=== PATIENT | male | born 1980 | race Caucasian/White ===

== ENCOUNTER → 2018-02-02 | Outpatient (REF) | payer OTHER | LOC: M SMT 13:07 | DX: Z30.09 Encounter for other general counseling and advice on contraception (principal) | CPT/HCPCS: 88302 ==

== ENCOUNTER → 2020-11-25 | Outpatient (CLI) | payer OTHER ==
--- NOTE | 2020-11-25 14:49 | REP ---
INDICATION: R22.1 SOFT TISSUE MASS OF ANTERIOR NECK. COMPARISON: None. TECHNIQUE: Real-time sonographic evaluation of neck soft tissues performed at the site of a palpable lump inferior to the thyroid anteriorly. FINDINGS: At the site of the palpable lump there is an oval area of soft tissue which is relatively isoechoic to subcutaneous fat. It measures 2.9 x 1.6 x 3.0 cm. This may represent a lipoma. No other cystic or solid masses seen. IMPRESSION: At the site of the palpable lump there is an area of soft tissue which appears isoechoic to subcutaneous fat measuring 2.9 by 1.6 x 3.0 cm. This may represent a lipoma, however, the sonographic appearance is not specific for lipoma.. A diagnosis of lipoma could be confirmed with MRI or CT. <Electronically signed by Pascual Mendez > 11/25/20 [id number]
== END ==
LOC: M WHC 13:36
PROVIDERS: ATTEND Student in an Organized Health Care Education/Training Program
DX: R22.1 Localized swelling, mass and lump, neck (principal)

== ENCOUNTER → 2021-08-25 | Outpatient (CLI) | payer OTHER ==
[~2021-08-25] MED LIST: ISOVUE-370 76% 100ML VIAL ONE
--- NOTE | 2021-08-27 14:47 | REPVR ---
PROCEDURE INFORMATION: Exam: CT Neck With Contrast Exam date and time: 08/25/2021 3:08 PM Age: 41 years old Clinical indication: Mass, lump, or swelling in neck; Other: Middle; Additional info: Neck swelling TECHNIQUE: Imaging protocol: Computed tomography images of the neck with contrast. Radiation optimization: All CT scans at this facility use at least one of these dose optimization techniques: automated exposure control; mA and/or kV adjustment per patient size (includes targeted exams where dose is matched to clinical indication); or iterative reconstruction. Contrast material: ISOVUE 370; Contrast volume: 75 ml; Contrast route: INTRAVENOUS (IV); COMPARISON: US SOFT TISSUE HEAD AND NECK 11/25/2020 2:19 PM FINDINGS: Nasopharynx: Unremarkable. Oropharynx: Unremarkable. No significant tonsillar enlargement. Hypopharynx: Unremarkable. Larynx: Unremarkable. Normal epiglottis. Retropharyngeal space: Unremarkable. Submandibular/Parotid glands: Normal. Glands are normal in size. Thyroid: Normal. No enlarged or calcified nodules. Lymph nodes: Unremarkable. No lymphadenopathy. Trachea: Visualized trachea is unremarkable. Lungs: Unremarkable as visualized. Bones/joints: There is mild reversal of the normal cervical lordosis. No acute fracture. Soft tissues: The site of palpable abnormality indicated by the radiopaque marker along the anterior neck corresponds to a well delineated fat containing lesion measuring up to 4.5 x 2.1 cm, compatible with lipoma. IMPRESSION: Findings compatible with a lipoma of the anterior neck. Electronically signed by: [place] On 08/27/2021 14:46:52 PM
== END ==
LOC: M PLAIMG 14:29
PROVIDERS: ATTEND Student in an Organized Health Care Education/Training Program
DX: R22.1 Localized swelling, mass and lump, neck (principal)
CPT/HCPCS: 70491; Q9967

== ENCOUNTER 2025-05-30 13:29 | Emergency (ER) | payer OTHER ==
[~2025-05-30] VITALS: Ht 177.8 cm; Wt 90.4 kg
[2025-05-30 13:32] VITALS: BP 152/110; TEMP 98; O2SAT 99
== END 2025-05-30 15:02 | disposition left against medical advice (07) ==
LOC: M ED 13:29
DX: Z53.21 Procedure and treatment not carried out due to patient leaving prior to being seen by health care provider (principal)